=== PATIENT | male | born 1980 | race Caucasian/White ===

== ENCOUNTER 2022-09-19 06:21 | Day surgery (SDC) | payer OTHER ==
[2022-09-17 11:20] VITALS: BMI 29.5
[2022-09-19] MEDS ORDERED: BUPIVACAINE HCL/EPINEPHRINE/PF 30 ML VIAL IJ ONE (07:01)
[2022-09-19] MEDS ORDERED: PROPOFOL 20 ML ONE (09:04)
[2022-09-19] MEDS ORDERED: MIDAZOLAM HCL 2 MG/2 ML SINGLE DOSE VIAL ONE (09:04)
[2022-09-19] MEDS ORDERED: ceFAZolin SODIUM 1 GM VIAL ONE (09:29)
[2022-09-19] MEDS ORDERED: DEXAMETHASONE SOD PHOSPHATE 4 MG/1 ML VIAL ONE (09:32)
[2022-09-19] MEDS ORDERED: ONDANSETRON 4 MG/2 ML VIAL ONE (09:32)
[2022-09-19] MEDS ORDERED: KETOROLAC TROMETHAMINE 30 MG/1 ML VIAL ONE (11:22)
[2022-09-19] MEDS ORDERED: FENTANYL CITRATE/PF 50 MCG/ML VIAL ONE (11:47)
[2022-09-19] MEDS ORDERED: oxyCODONE HCL 5 MG TABLET PO PRN (12:20)
[2022-09-19] MEDS ORDERED: ONDANSETRON 4 MG/2 ML VIAL IVPUSH PRN (12:20)
[2022-09-19] MEDS ORDERED: ACETAMINOPHEN 1000 MG/100 ML BAG IVPB PRN (12:20)
[2022-09-19 12:30] VITALS: RESP 16
[2022-09-19] MEDS ORDERED: LACTATED RINGERS SOLUTION 1,000 ML IV SCH (12:30)
[2022-09-19] MEDS ORDERED: oxyCODONE HCL 5 MG TABLET ONE (13:00)
[2022-09-19] MEDS ORDERED: oxyCODONE HCL 5 MG TABLET PO ONE (13:04)
[2022-09-19 13:13] VITALS: BP 117/50; PULSE 76; TEMP 98.3
== END 2022-09-19 15:45 | disposition home or self-care (01) ==
LOC: FASU 06:21
PROVIDERS: ATTEND Orthopaedic Surgery
PROC: 0LQ20ZZ Repair Left Shoulder Tendon, Open Approach (ICD-10-PCS; principal; 2022-09-19 09:55)
DX: S46.122A Laceration of muscle, fascia and tendon of long head of biceps, left arm, initial encounter (principal); X58.XXXA Exposure to other specified factors, initial encounter; Y93.9 Activity, unspecified; Y92.9 Unspecified place or not applicable
CPT/HCPCS: 94760